=== PATIENT | male | born 1995 | race Caucasian/White ===

== ENCOUNTER 2021-11-09 09:40 | Emergency (ER) | payer BC ==
[2021-11-09] MEDS ORDERED: Ketorolac Tromethamine 30 MG/ML VIAL IM SCH (11:30)
== END 2021-11-09 11:52 | disposition home or self-care (01) ==
LOC: CSHERS 09:40
DX: R07.89 Other chest pain (principal)
CPT/HCPCS: 71045; 96372; J1885